=== PATIENT | male | born 1995 ===

== ENCOUNTER 2022-12-14 22:00 | Emergency (ER) | payer SELFPAY ==
[2022-12-14] MEDS ORDERED: FLUORESCEIN SODIUM 1 MG/WRAP ONE (22:41)
[2022-12-14] MEDS ORDERED: TETRACAINE HCL 0.5% 4ML OPTH ONE (22:42)
--- NOTE | 2022-12-14 22:55 | EDPHYS ---
Physician Documentation [facility] Name: Erwin Purcell Age: 27 yrs Sex: Male : 1995 Arrival Date: 12/14/2022 Time: 22:00 Bed Treatment Private MD: ED Physician Mart Mckinney HPI: 12/14 23:43 This 27 yrs old Male presents to ER via Ambulatory with complaints of Foreign Body In snw Eye. 23:43 to the right eye, caused by an unknown mechanism. Onset: The symptoms/episode snw began/occurred suddenly, 2 hours prior to arrival. Duration: the symptoms are continuous. Aggravated by rubbing, Alleviated by nothing. Patient does not utilize any form of vision correction. Severity of symptoms: At their worst the symptoms were moderate in the emergency department the symptoms have improved. The patient has not experienced similar symptoms in the past. It is unknown whether or not the patient has recently seen a physician. Historical: - Allergies: 22:21 No Known Allergies; ap3 - Home Meds: 22:21 None [Active]; ap3 - PMHx: 22:21 None; ap3 - Immunization history:: Client reports receiving the 2nd dose of the Covid vaccine. - Social history:: Smoking status: Patient denies any tobacco usage or history of. ROS: 23:41 Constitutional: Negative for fever, chills, and weight loss, ENT: Negative for injury, snw pain, and discharge, Neck: Negative for injury, pain, and swelling, Cardiovascular: Negative for chest pain, palpitations, and edema, Respiratory: Negative for shortness of breath, cough, wheezing, and pleuritic chest pain, Abdomen/GI: Negative for abdominal pain, nausea, vomiting, diarrhea, and constipation, Back: Negative for injury and pain, : Negative for injury, bleeding, discharge, and swelling, MS/Extremity: Negative for injury and deformity, Skin: Negative for injury, rash, and discoloration, Neuro: Negative for headache, weakness, numbness, tingling, and seizure, Psych: Negative for depression, anxiety, suicide ideation, homicidal ideation, and hallucinations, 23:41 Eyes: Positive for foreign body sensation, redness, of the outer aspect of conjuctiva of right eye and inner aspect of conjuctiva of right eye, Exam: 23:40 Constitutional: This is a well developed, well nourished patient who is awake, alert, snw and in no acute distress. Head/Face: Normocephalic, atraumatic. ENT: Nares patent. No nasal discharge, no septal abnormalities noted. Tympanic membranes are normal and external auditory canals are clear. Oropharynx with no redness, swelling, or masses, exudates, or evidence of obstruction, uvula midline. Mucous membranes moist. Neck: Trachea midline, no thyromegaly or masses palpated, and no cervical lymphadenopathy. Supple, full range of motion without nuchal rigidity, or vertebral point tenderness. No Meningismus. Chest/axilla: Normal chest wall appearance and motion. Nontender with no deformity. No lesions are appreciated. Cardiovascular: Regular rate and rhythm with a normal S1 and S2. No gallops, murmurs, or rubs. Normal PMI, no JVD. No pulse deficits. Respiratory: Lungs have equal breath sounds bilaterally, clear to auscultation and percussion. No rales, rhonchi or wheezes noted. No increased work of breathing, no retractions or nasal flaring. Abdomen/GI: Soft, non-tender, with normal bowel sounds. No distension or tympany. No guarding or rebound. No evidence of tenderness throughout. Back: No spinal tenderness. No costovertebral tenderness. Full range of motion. Skin: Warm, dry with normal turgor. Normal color with no rashes, no lesions, and no evidence of cellulitis. MS/ Extremity: Pulses equal, no cyanosis. Neurovascular intact. Full, normal range of motion. Neuro: Awake and alert, GCS 15, oriented to person, place, time, and situation. Cranial nerves II-XII grossly intact. Motor strength 5/5 in all extremities. Sensory grossly intact. Cerebellar exam normal. Normal gait. Psych: Awake, alert, with orientation to person, place and time. Behavior, mood, and affect are within normal limits. 23:40 Eyes: Periorbital structures: no acute changes, Pupils: no acute changes, Extraocular movements: no acute changes, Conjunctiva: injected, in the right eye, Corneas: are normal, no evidence of abrasion, no foreign body, Lids and lashes: appear normal, Visual balderas: are intact, Vital Signs: 22:19 BP 136 / 89; Pulse 69; Resp 18; Temp 98.2; Pulse Ox 99% ; Weight 61.23 kg; ap3 23:11 BP 128 / 77; Pulse 64; Resp 17; Pulse Ox 100% on R/A; me1 Procedures: 23:42 Eye Exam: no noted fb, nothing under lids, no noted dye uptake, + conjunctival snw injection to area under iris. Flushed and EES oint instilled. MDM: 22:31 Patient medically screened. snw 23:44 Differential diagnosis: Corneal abrasion of Foreign body in Data reviewed: vital signs, snw nurses notes. I considered the following discharge prescriptions or medication management in the emergency department Medications were administered in the Emergency Department. See MAR. Counseling: I had a detailed discussion with the patient and/or guardian regarding the historical points, exam findings, and any diagnostic results supporting the discharge/admit diagnosis, the need for outpatient follow up, for definitive care, opthalmology. Response to treatment: the patient's symptoms have mildly improved after treatment. Special discussion: Based on the history and exam findings, there is no indication for further emergent testing or inpatient evaluation. I discussed with the patient/guardian the need to see the opthamologist for further evaluation of the symptoms, I discussed with the patient/guardian the need to see the primary care provider for further evaluation of the symptoms. 12/14 22:32 Order name: Eye Tray; Complete Time: 23:20 snw 12/14 22:32 Order name: Fluoresene Opth strip; Complete Time: 23:20 snw Administered Medications: 22:53 Drug: ERYTHromycin Ophthalmic Ointment 1 application Ophthalmic once Route: Ophthalmic; snw Site: right eye; 23:06 Follow up: Response: No adverse reaction me1 23:01 Drug: Tetracaine Ophthalmic Drops 0.5 % 1 drops Ophthalmic once {Note: by Peggy meAlphonso Sifuentes NP.} Route: Ophthalmic; Site: right eye; 23:07 Follow up: Response: No adverse reaction me1 Disposition: 12/15 01:58 I was immediately available on-site in the Emergency Department for consultation in the nd3 care of the patient. Disposition Summary: 12/14/22 22:55 Discharge Ordered Notes: Location: Home snw Condition: Stable snw Diagnosis - Ocular pain, right eye snw - Unspecified acute conjunctivitis, right eye snw Followup: snw - With: Emergency Department - When: As needed - Reason: Worsening of condition Followup: snw - With: Private Physician - When: 1 - 2 days - Reason: Recheck today's complaints, Continuance of care, Re-evaluation by your physician Discharge Instructions: - Discharge Summary Sheet snw - Chemical Conjunctivitis, Adult snw - How to Use Eye Drops and Eye Ointments snw Forms: - Work release form snw - Medication Reconciliation Form snw - Thank You Letter snw - Antibiotic Education snw - Prescription Opioid Use snw - Patient Portal Instructions snw - Leadership Thank You Letter snw Prescriptions: - ERYTHROMYCIN OPTHALMIC Ointment - instill 0.5 ribbon OPHTHALMIC route 3 times per day for 7 days; 3.5 gram tube; snw Refills: 0, Product Selection Permitted - Mobic 7.5 mg Oral Tablet - take 1 tablet ORAL route once daily take with food; 20 tablet; Refills: 0, snw Product Selection Permitted Signatures: Peggy Sifuentes, ASSOCIATE ACCOUNT DIRECTOR-C ASSOCIATE ACCOUNT DIRECTOR-Csnw Cecile Conteh, RN RN ap3 Mart Mckinney DO DO ms3 Nathalia Perry RN RN me1
--- NOTE | 2022-12-14 22:55 | ER ---
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 Coronavirus screen: At this time, the client does not indicate any symptoms associated with coronavirus-19. Ebola Screen: No symptoms or risks identified at this time. Initial Sepsis Screen: Does the patient meet any 2 criteria? No. Patient's initial sepsis screen is negative. Does the patient have a suspected source of infection? No. Patient's initial sepsis screen is negative. Risk Assessment: Do you want to hurt yourself or someone else? Patient reports no desire to harm self or others. Onset of symptoms was December 14, 2022. 22:19 Method Of Arrival: Ambulatory ap3 22:19 Acuity: NATHANIEL 4 ap3 Triage Assessment: 22:22 General: Appears in no apparent distress. Behavior is calm, cooperative, appropriate ap3 for age. Pain: Complains of pain in right eye. EENT: Sclera/Cornea are reddened in outer aspect of conjuctiva of right eye and iris of right eye. Neuro: Level of Consciousness is awake, alert, obeys commands, Oriented to person, place, time, situation. Cardiovascular: Patient's skin is warm and dry. Respiratory: Airway is patent Respiratory effort is even, unlabored, Respiratory pattern is regular, symmetrical. Historical: - Allergies: 22:21 No Known Allergies; ap3 - Home Meds: 22:21 None [Active]; ap3 - PMHx: 22:21 None; ap3 - Immunization history:: Client reports receiving the 2nd dose of the Covid vaccine. - Social history:: Smoking status: Patient denies any tobacco usage or history of. Screenin:22 [facility] ED Fall Risk Assessment (Adult) History of falling in the last 3 months, ap3 including since admission No falls in past 3 months (0 pts). Abuse screen: Denies threats or abuse. Nutritional screening: No deficits noted. Tuberculosis screening: No symptoms or risk factors identified. 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 Patient flushed right eye out before coming to ER. Pain: Complains of pain in right eye Pain does not radiate. Pain currently is 8 out of 10 on a pain scale. Quality of pain is described as sharp, Pain began suddenly, 2 hours ago. Is continuous. Neuro: Level of Consciousness is awake, alert, obeys commands, Oriented to person, place, time, situation, Appropriate for age. Cardiovascular: Capillary refill < 3 seconds Patient's skin is warm and dry. Respiratory: Airway is patent Respiratory effort is even, unlabored, Respiratory pattern is regular, symmetrical. Vital Signs: 22:19 BP 136 / 89; Pulse 69; Resp 18; Temp 98.2; Pulse Ox 99% ; Weight 61.23 kg; ap3 23:11 BP 128 / 77; Pulse 64; Resp 17; Pulse Ox 100% on R/A; me1 ED Course: 22:05 Patient arrived in ED. ag3 22:07 Peggy [facility]-C [facility] snw 22:07 Mart Mckinney DO is Attending Physician. snw 22:21 Triage completed. ap3 22:22 Arm band placed on left wrist. ap3 22:39 Nathalia Perry, LOLI is Primary Nurse. me1 23:01 Patient has correct armband on for positive identification. Bed in low position. Call me1 light in reach. Side rails up X 1. Provided Education on: POC. Verbalized understanding. . 23:01 No provider procedures requiring assistance completed. Patient did not have IV access [facility] during this emergency room visit. Administered Medications: 22:53 Drug: ERYTHromycin Ophthalmic Ointment 1 application Ophthalmic once Route: Ophthalmic; snw Site: right eye; 23:06 Follow up: Response: No adverse reaction me1 23:01 Drug: Tetracaine Ophthalmic Drops 0.5 % 1 drops Ophthalmic once {Note: by Peggy Sifuentes NP.} Route: Ophthalmic; Site: right eye; 23:07 Follow up: Response: No adverse reaction me1 Medication: 23:01 VIS not applicable for this client. me1 Outcome: 22:55 Discharge ordered by . snw 23:19 Discharged to home ambulatory, me1 23:19 Condition: stable 23:19 Discharge instructions given to patient, Instructed on discharge instructions, follow up and referral plans. medication usage, Demonstrated understanding of instructions, follow-up care, medications, Prescriptions given X 2, 23:20 Patient left the ED. me1 Signatures: Peggy Sifuentes, SITE SUPERINTENDENT-C SITE SUPERINTENDENT-Csnw Cecile Conteh, RN RN [email or web address] Shana Alves Michelle, RN RN me1
[2022-12-14] MEDS ORDERED: ERYTHROMYCIN 3.5GM OPTH OINT ONE (23:03)
== END 2022-12-14 23:20 | disposition home or self-care (01) ==
LOC: ER 22:00
DX: H10.31 Unspecified acute conjunctivitis, right eye (principal)
CPT/HCPCS: 99283